=== PATIENT | female | born 1975 | race Caucasian/White ===

== ENCOUNTER 2017-01-29 16:14 | Emergency (ER) | payer OTHER ==
[~2017-01-29] VITALS: Ht 170.2 cm; Wt 90.7 kg
[~2017-01-29 16:14] MED LIST changes: -LEVO1TAB35 PO
[2017-01-29 16:32] VITALS: Ht 170.2 cm; Wt 90.7 kg
--- NOTE | 2017-01-29 16:59 | EMERGENCY ROOM VISIT NOTE ---
History Report prepared by Froy: Jeff Mckenna Under the Supervision of: Dr. Flavio Pradhan D.O. First contact with patient: 16:47 Chief Complaint: ABNORMAL DIAGNOSTIC TESTING Stated Complaint: ABNORMAL CT SCAN- LL LOBE AIRSPACE OPACITIES History of Present Illness The patient is a 41 year old female who presents to the Emergency Room with complaints of an abnormal diagnostic test that was discovered prior to arrival today. She notes that she was having bad lower back pain, so she went to see her doctor, and she had a urine culture. The doctor noted that the patient had blood in her urine, so she was sent for a CT scan, and the scan did not reveal a kidney stone. However, it did reveal a problem in her lung, which is concerning for a pulmonary embolism or pneumonia in her left lower lobe. 2 days ago, the patient says she has started getting intermittently sweaty and feverish. She started getting a mild cough today. She denies any nausea, vomiting, urinary symptoms, shortness of breath, or pain or swelling in her legs. She has no major medical problems and is not on any medications. She does not take control pills. She has no clot history. She does not drink alcohol or use tobacco products. Source of History: patient Onset: Prior to arrival today Position: other (global - abnormal diagnostic test) Quality: other (abnormal CT scan ) Associated Symptoms: + back pain, + cough, + diaphoresis, No SOB, No nausea , No urinary symptoms, No vomiting Note: Associated symptoms: Episodes of feeling feverish. Denies leg pain or swelling. Review of Systems See HPI for pertinent positives & negatives. A total of 10 systems reviewed and were otherwise negative. Past Medical & Surgical Medical Problems: (1) No chronic problems Family History Kidney stones Social History Smoking Status: Never Smoker Smokeless Tobacco Use: No Alcohol Use: none Marital Status: Housing Status: lives with family Occupation Status: employed Current/Historical Medications Scheduled Levofloxacin (Levaquin), 750 MG PO DAILY Allergies Coded Allergies: Lidocaine (Unverified Allergy, Mild, 12/16/09) Erythromycin (Verified Allergy, Unknown, 12/16/09) Penicillins (Verified Allergy, Unknown, 12/16/09) Sulfa Drugs (Verified Allergy, Unknown, 12/16/09) Physical Exam Vital Signs Date Time Temp Pulse Resp B/P Pulse Ox O2 Delivery O2 Flow Rate FiO2 01/29/17 18:40 36.6 85 18 130/83 97 01/29/17 18:37 85 130/83 01/29/17 17:35 97 Room Air 01/29/17 17:35 Room Air 01/29/17 16:32 36.6 63 18 133/85 99 Room Air Physical Exam GENERAL: Patient is awake, alert, and in no acute distress. Patient is resting comfortably and showing no signs of anxiety EYES: The conjunctivae are clear. The pupils are round and reactive. EARS, NOSE, MOUTH AND THROAT: The nose is without any evidence of any deformity. Mucous membranes are moist tongue is midline NECK: The neck is nontender and supple. RESPIRATORY: Normal respiratory effort is noted there is no evidence of wheezing rhonchi or rales CARDIOVASCULAR: Regular rate and rhythm noted there no murmurs rubs or gallops normal S1 normal S2 GASTROINTESTINAL: The abdomen is soft. Bowel sounds are present in all quadrants. Abdomen is nontender MUSCULOSKELETAL/EXTREMITIES: There is no evidence of gross deformity full range of motion is noted in the hips and shoulders SKIN: There is no obvious evidence of any rash. There are no petechiae, pallor or cyanosis noted. NEUROLOGIC: Patient is awake alert and oriented x3 strength is symmetric patellar reflexes are 2+ bilaterally Medical Decision & Procedures ER Provider Diagnostic Interpretation: Radiology results as stated below per my review and radiologist interpretation: CHEST CTA for PULMONARY ARTERIES CT DOSE: 266.70 mGy.cm HISTORY: Abnormal left lower lobe airspace opacity. Cough. Assess for pulmonary embolus. TECHNIQUE: Multiaxial CT images of the chest were performed following the intravenous administration of contrast to evaluate the pulmonary arteries. Maximal intensity projection images were also obtained. COMPARISON STUDY: Abdomen and pelvis CT 01/29/2017. FINDINGS: Normal caliber thoracic aorta with no evidence for dissection. The heart is normal in size. No pleural or pericardial effusions. Mild left hilar lymphadenopathy. No evidence for pulmonary embolus. The liver, spleen, and adrenal glands are unremarkable. No pneumothorax. Focal area of consolidation within the left lower lobe posteriorly. This measures 4.3 cm. The right lung is clear. IMPRESSION: 1. Focal consolidation within the left lower lobe which favors a pneumonia. Recommend one month follow-up to ensure complete resolution. 2. Mild left hilar lymphadenopathy which is likely reactive. 3. No evidence for pulmonary embolus. Electronically signed by: Raul Waddell M.D. 01/29/2017 5:36 PM Dictated Date/Time: 01/29/2017 5:31 PM CHEST ONE VIEW PORTABLE HISTORY: Atypical CHEST PAIN COMPARISON: None. FINDINGS: Left infrahilar focal airspace opacity. The right lung is clear. The heart is normal in size. No pleural effusions. No pneumothorax. IMPRESSION: Left infrahilar airspace opacity consistent with a pneumonia. Recommend one month chest x-ray follow to ensure resolution. Electronically signed by: Raul Waddell M.D. 01/29/2017 5:17 PM Dictated Date/Time: 01/29/2017 5:16 PM Laboratory Results 01/29/17 17:00 Red Blood Count 4.50, Mean Corpuscular Volume 85.8, Mean Corpuscular Hemoglobin 30.4, Mean Corpuscular Hemoglobin Concent 35.5, Mean Platelet Volume 9.0, Neutrophils (%) (Auto) 51.1, Lymphocytes (%) (Auto) 31.1, Monocytes (%) (Auto) 14.2, Eosinophils (%) (Auto) 2.9, Basophils (%) (Auto) 0.5, Neutrophils # (Auto ) 3.17, Lymphocytes # (Auto) 1.93, Monocytes # (Auto) 0.88, Eosinophils # (Auto ) 0.18, Basophils # (Auto) 0.03 01/29/17 17:00 Test 01/29/17 17:00 01/29/17 17:06 White Blood Count 6.20 K/uL (4.8-10.8) Red Blood Count 4.50 M/uL (4.2-5.4) Hemoglobin 13.7 g/dL (12.0-16.0) Hematocrit 38.6 % (37-47) Mean Corpuscular Volume 85.8 fL (80-100) Mean Corpuscular Hemoglobin 30.4 pg (25-34) Mean Corpuscular Hemoglobin Concent 35.5 g/dl (32-36) Platelet Count 174 K/uL (130-400) Mean Platelet Volume 9.0 fL (7.4-10.4) Neutrophils (%) (Auto) 51.1 % Lymphocytes (%) (Auto) 31.1 % Monocytes (%) (Auto) 14.2 % Eosinophils (%) (Auto) 2.9 % Basophils (%) (Auto) 0.5 % Neutrophils # (Auto) 3.17 K/uL (1.4-6.5) Lymphocytes # (Auto) 1.93 K/uL (1.2-3.4) Monocytes # (Auto) 0.88 K/uL (0.11-0.59) Eosinophils # (Auto) 0.18 K/uL (0-0.5) Basophils # (Auto) 0.03 K/uL (0-0.2) RDW Standard Deviation 40.5 fL (36.4-46.3) RDW Coefficient of Variation 12.8 % (11.5-14.5) Immature Granulocyte % (Auto) 0.2 % Immature Granulocyte # (Auto) 0.01 K/uL (0.00-0.02) Prothrombin Time 10.3 SECONDS (9.0-12.0) Prothromb Time International Ratio 1.0 (0.9-1.1) Activated Partial Thromboplast Time 27.6 SECONDS (21.0-31.0) Partial Thromboplastin Ratio 1.1 Est Creatinine Clear Calc Drug Dose 98.3 ml/min Estimated GFR () 95.3 Estimated GFR (Non- 82.2 BUN/Creatinine Ratio 14.0 (10-20) Calcium Level 9.2 mg/dl (8.5-10.1) Total Bilirubin 0.5 mg/dl (0.2-1) Direct Bilirubin 0.1 mg/dl (0-0.2) Aspartate Amino Transf (AST/SGOT) 19 U/L (15-37) Alanine Aminotransferase (ALT/SGPT) 21 U/L (12-78) Alkaline Phosphatase 88 U/L (45-117) Troponin I < 0.015 ng/ml (0-0.045) Total Protein 8.2 gm/dl (6.4-8.2) Albumin 3.8 gm/dl (3.4-5.0) Lipase 229 U/L (73-393) Human Chorionic Gonadotropin, Qual NEG (NEG) Bedside Hemoglobin 13.9 g/dl (12.0-16.0) Bedside Hematocrit 41 % (37-47) Bedside Sodium 138 mEq/L (135-144) Bedside Potassium 4.1 mEq/L (3.3-5.0) Bedside Chloride 99 mEq/L (101-112) Bedside Total CO2 25 mEq/l (24-31) Anion Gap 18.0 mmol/L (16-25) Bedside Blood Urea Nitrogen 12 mg/dl (7-18) Bedside Creatinine 0.8 mg/dl (0.6-1.3) Bedside Glucose (other) 92 mg/dl (70-99) Bedside Ionized Calcium (Luis) 1.22 mmol/l (1.12-1.32) Laboratory results per my review. Medications Administered Medications (Trade) Dose Ordered Sig/Pearl Route Start Time Stop Time Status Last Admin Dose Admin Sodium Chloride (Nss 1000ml) 1,000 ml @ 999 mls/hr Q1H1M STAT IV 01/29/17 17:49 01/29/17 18:49 DC 01/29/17 18:01 999 MLS/HR Levofloxacin (Levaquin Tab) 750 mg NOW STAT PO 01/29/17 17:49 01/29/17 17:50 DC 01/29/17 18:01 750 MG ECG Indication: other (back pain) Rate (beats per minute): 66 Rhythm: normal sinus Findings: no ectopy, other (no acute ST segment abnormalities) ED Course 1647: The patient was evaluated in room B5. A complete history and physical examination were performed. 1748: Ordered Levaquin Tab 750 mg PO, NSS 1000 ml @ 999 mls/hr IV. 0: Upon reevaluation, the patient is resting comfortably. I discussed the results and treatment plan with her. She verbalized agreement of the treatment plan. She was discharged home. Medical Decision Differential diagnosis: Etiologies such as musculoskeletal, disc herniation, fracture, aortic disease, metastatic disease, cord compression, discitis, infection, renal colic, gastrointestinal, acute exacerbation of chronic back pain, sciatica, cauda equina, as well as others were entertained. Nursing notes reviewed. The patient's recent radiographic studies were reviewed. The patient is a 41-year-old female who presented to the emergency Department directly from CAT scan. The patient has been having problems with flank pain and hematuria. She was seen by her primary care physician initially. She was sent to radiology for a CT the abdomen and pelvis for possible kidney stone. The CT did not show signs of kidney stone however it did show a possible infiltrate in the left base which was read by radiology as a possible pulmonary infarct. The patient has not had a fever. She does complain of flank pain but it does not appear to be upper chest pain. The patient was not hypoxic. Her white blood cell count was normal. CT the chest was obtained to rule out the possibility of pulmonary infarction. I discussed the patient's laboratory radiographic studies with her. She was treated with IV fluids and an oral antibiotic in the emergency department. She was encouraged to rest and avoid any strenuous activity. She was also encouraged to call her primary care physician in the morning to schedule a follow-up appointment. She was also encouraged to return to the emergency apartment immediately if symptoms change worsen or if the need arises. Impression Primary Impression: Pneumonia involving left lung Additional Impression: Back pain Scribe Attestation The scribe's documentation has been prepared under my direction and personally reviewed by me in its entirety. I confirm that the note above accurately reflects all work, treatment, procedures, and medical decision making performed by me. Departure Information Dispostion Home / Self-Care Prescriptions Levofloxacin (Levaquin) 750 Mg Tab 750 MG PO DAILY, #7 TAB Prov: Flavio Pradhan, DO 01/29/17 Referrals Vicky Field D.OMj (PCP) Forms HOME CARE DOCUMENTATION FORM, IMPORTANT VISIT INFORMATION, WORK / SCHOOL INSTRUCTIONS, Work Instructions Patient Instructions My [facility], Pneumonia Additional Instructions Call your family in the morning to schedule a follow-up appointment. Rest and avoid any strenuous activity. Continue using Motrin and Tylenol as directed for pain. Return to the emergency department if symptoms change worsen or if the need arises. Problem Qualifiers Primary Impression: Pneumonia involving left lung Pneumonia type: due to unspecified organism Lung location: lower lobe of lung Qualified Codes: J18.1 - Lobar pneumonia, unspecified organism Additional Impression: Back pain Back pain location: low back pain Chronicity: unspecified Back pain laterality: unspecified Sciatica presence: without sciatica Qualified Codes : M54.5 - Low back pain
[2017-01-29] MEDS ORDERED: OPTIRAY 320 IV PRN (17:00)
[2017-01-29 17:19] LABS: BASO % 0.5 %; BASO ABS # 0.03 K/uL (0-0.2); COMPLETE YES; EOS % 2.9 %; HEMATOCRIT 38.6 % (37-47); IG% 0.2 %; LYMPH % 31.1 %; LYMPH ABS # 1.93 K/uL (1.2-3.4); MEAN CELL VOLUME 85.8 fL (80-100); MEAN CORPUSCULAR HEMOGLOBIN 30.4 pg (25-34); MEAN CORPUSCULAR HGB CONC 35.5 g/dl (32-36); MONO % 14.2 %; NEUT % 51.1 %; PLATELET COUNT 174 K/uL (130-400)
--- NOTE | 2017-01-29 17:19 | DIAGNOSTIC IMAGING REPORT ---
CHEST ONE VIEW PORTABLE HISTORY: Atypical CHEST PAIN COMPARISON: None. FINDINGS: Left infrahilar focal airspace opacity. The right lung is clear. The heart is normal in size. No pleural effusions. No pneumothorax. IMPRESSION: Left infrahilar airspace opacity consistent with a pneumonia. Recommend one month chest x-ray follow to ensure resolution. Electronically signed by: Raul Waddell M.D. 01/29/2017 5:17 PM Dictated Date/Time: 01/29/2017 5:16 PM
[2017-01-29 17:20] LABS: ISTAT CREATININE 0.8 mg/dl (0.6-1.3); ISTAT HEMOGLOBIN 13.9 g/dl (12.0-16.0); ISTAT IONIZED CALCIUM 1.22 mmol/l (1.12-1.32)
[2017-01-29 17:28] LABS: PARTIAL THROMBOPLASTIN RATIO 1.1; PROTHROMBIN TIME (PATIENT) 10.3 SECONDS (9.0-12.0)
[2017-01-29 17:35] VITALS: O2SAT 97
--- NOTE | 2017-01-29 17:37 | DIAGNOSTIC IMAGING REPORT ---
CHEST CTA for PULMONARY ARTERIES CT DOSE: 266.70 mGy.cm HISTORY: Abnormal left lower lobe airspace opacity. Cough. Assess for pulmonary embolus. TECHNIQUE: Multiaxial CT images of the chest were performed following the intravenous administration of contrast to evaluate the pulmonary arteries. Maximal intensity projection images were also obtained. COMPARISON STUDY: Abdomen and pelvis CT 01/29/2017. FINDINGS: Normal caliber thoracic aorta with no evidence for dissection. The heart is normal in size. No pleural or pericardial effusions. Mild left hilar lymphadenopathy. No evidence for pulmonary embolus. The liver, spleen, and adrenal glands are unremarkable. No pneumothorax. Focal area of consolidation within the left lower lobe posteriorly. This measures 4.3 cm. The right lung is clear. IMPRESSION: 1. Focal consolidation within the left lower lobe which favors a pneumonia. Recommend one month follow-up to ensure complete resolution. 2. Mild left hilar lymphadenopathy which is likely reactive. 3. No evidence for pulmonary embolus. Electronically signed by: Raul Waddell M.D. 01/29/2017 5:36 PM Dictated Date/Time: 01/29/2017 5:31 PM
[2017-01-29 17:43] LABS: ALT/SGPT 21 U/L (12-78); BLOOD UREA NITROGEN 12 mg/dl (7-18); CALCIUM 9.2 mg/dl (8.5-10.1); CARBON DIOXIDE 27 mmol/L (21-32); CHLORIDE 102 mmol/L (98-107); CREATININE 0.88 mg/dl (0.60-1.20); GLUCOSE 89 mg/dl (70-99); SODIUM 137 mmol/L (136-145)
[2017-01-29 17:46] LABS: PREG INTERNAL NEGATIVE QC NEG CLEAR BACKGROUND; PREG INTERNAL POSITIVE QC POS CONTROL LINE
[2017-01-29 17:48] LABS: ALKALINE PHOSPHATASE 88 U/L (45-117); AST/SGOT 19 U/L (15-37)
[2017-01-29] MEDS ORDERED: LEVOFLOXACIN 250 MG TAB PO STA (17:49)
[2017-01-29] MEDS ORDERED: SODIUM CHLORIDE 0.9% 1000ML 1,000 ML IV STA (17:49)
[2017-01-29] MEDS ORDERED: LEVO1TAB35 PO (18:10)
[2017-01-29 18:40] VITALS: BP 130/83; PULSE 85; TEMP 36.6; O2SAT 97
--- NOTE | 2017-01-31 13:29 | Pharmacy Progress Note ---
ED Pharmacist Culture FollowUp Date of Service: Jan 31, 2017. Urine cx from 01/29/17 growing gardnerella-like bacilli. No urinary complains or c/o of vaginal discharge. Not a likely urinary pathogen. UTI was not diagnosed or suspected per ED documentation, rather patient was dx w/ PNX. She was discharged on Levofloxacin. No action required.
== END 2017-01-29 18:41 | disposition home or self-care (01) ==
LOC: C.EDB 16:15
DX: M54.5 Low back pain (principal); J18.1 Lobar pneumonia, unspecified organism; Z84.1 Family history of disorders of kidney and ureter

== ENCOUNTER → 2017-01-29 | Outpatient (CLI) | payer OTHER ==
[~2017-01-29] MED LIST: LEVO1TAB35 PO; NAPR220T40 PO
--- NOTE | 2017-01-29 15:30 | DIAGNOSTIC IMAGING REPORT ---
CT SCAN OF THE ABDOMEN AND PELVIS WITHOUT CONTRAST CLINICAL HISTORY: Right flank pain COMPARISON STUDY: No previous studies for comparison. TECHNIQUE: CT scan of the abdomen and pelvis was performed from the lung bases to the proximal femurs. Images are reviewed in the axial, sagittal, and coronal planes. IV contrast was not administered for this examination. CT DOSE: 990.50 mGy.cm FINDINGS: Lower chest: There are left lower lobe airspace opacities, consistent with a pneumonia. Clinical correlation is advocated. Films subsequent to treatment are recommended in follow-up. Liver: The unenhanced liver is normal in size, contour, and attenuation. There is no intrahepatic biliary ductal dilatation. Gallbladder: Contracted Spleen: Mildly enlarged measuring 13 cm Pancreas: Unremarkable. Adrenal glands: Unremarkable. Kidneys: No renal, ureteral, or bladder calculi are visualized. Bowel: There are no transition zones indicate bowel obstruction. By history the appendix is surgically absent. There is no acute diverticulitis. Peritoneum: There is no intraperitoneal free air or abdominal ascites. Vasculature: The abdominal aorta is normal in course and caliber. Adenopathy: None. Pelvic viscera: The bladder, and pelvic viscera are unremarkable. Skeletal structures: No destructive osseous lesions are seen. IMPRESSION: 1. No renal, ureteral, or bladder calculi identified 2. No evidence of bowel obstruction. No evidence of free air 3. Left lower lobe airspace opacities. While likely representing a pneumonia, in the absence of pulmonary symptomatology, a pulmonary infarct must be considered. Clinical correlation is advocated. Films subsequent to treatment are recommended in follow-up. Electronically signed by: Sanjeev Lyon M.D. 01/29/2017 3:29 PM Dictated Date/Time: 01/29/2017 3:22 PM
== END | disposition home or self-care (01) ==
LOC: C.CTS 14:50
PROVIDERS: ATTEND Family Medicine
DX: R31.9 Hematuria, unspecified (principal); R10.9 Unspecified abdominal pain; R91.8 Other nonspecific abnormal finding of lung field